=== PATIENT | male | born 1945 | race Caucasian/White ===

== ENCOUNTER → 2019-05-20 11:20 | Outpatient (BNVA) | payer MEDICARE, SELFPAY | PROVIDERS: Family Provider Family Medicine; PCP Family Medicine; Visit Provider Internal Medicine Rheumatology | DX: M05.79 Rheumatoid arthritis with rheumatoid factor of multiple sites without organ or systems involvement (principal); Z79.899 Other long term (current) drug therapy; Z20.1 Contact with and (suspected) exposure to tuberculosis; J44.9 Chronic obstructive pulmonary disease, unspecified; F17.210 Nicotine dependence, cigarettes, uncomplicated | CPT/HCPCS: 99213 ==

== ENCOUNTER → 2019-09-16 14:11 | Outpatient (BNVA) | payer MEDICARE, SELFPAY | PROVIDERS: Family Provider Family Medicine; PCP Family Medicine; Visit Provider Internal Medicine Rheumatology | DX: M05.79 Rheumatoid arthritis with rheumatoid factor of multiple sites without organ or systems involvement (principal); J44.9 Chronic obstructive pulmonary disease, unspecified; R91.1 Solitary pulmonary nodule; F17.210 Nicotine dependence, cigarettes, uncomplicated; Z79.899 Other long term (current) drug therapy; M06.9 Rheumatoid arthritis, unspecified; M19.071 Primary osteoarthritis, right ankle and foot; M85.871 Other specified disorders of bone density and structure, right ankle and foot; M19.072 Primary osteoarthritis, left ankle and foot; M47.812 Spondylosis without myelopathy or radiculopathy, cervical region | CPT/HCPCS: 72040; 73130; 73630; 99214 ==

== ENCOUNTER 2019-09-16 15:22 | Outpatient (CLI) | payer MEDICARE, SELFPAY ==
--- NOTE | 2019-09-16 15:31 | XRR_ITS ---
PROCEDURE INFORMATION: Exam: XR Left Foot Complete Exam date and time: 09/16/2019 3:34 PM Age: 74 years old Clinical indication: Condition or disease; Arthritis; Rheumatoid; Ankle and foot; Bilateral; Prior surgery; Surgery type: Left foot surgery, date of surgery not provided; Additional info: Rheumatoid arthritis TECHNIQUE: Imaging protocol: XR Left foot. Views: 3 or more views. COMPARISON: No relevant prior studies available. FINDINGS: Bones/joints: There is no fracture or dislocation. There are minimal marginal osteophytes at the 1st MTP joint. There are degenerative changes of the interphalangeal joint. Possible small erosion at the medial base of the 5th proximal phalanx. No other erosions are identified. No periosteal reaction. There is a minimal spur at the Achilles tendon insertion site on the calcaneus. Soft tissues: Normal. XR/XR foot LT min 3V* [id number] IMPRESSION: 1. Interphalangeal osteoarthritis. 2. Possible erosion at the medial base of the 5th proximal phalanx.
--- NOTE | 2019-09-16 15:31 | XRR_ITS ---
PROCEDURE INFORMATION: Exam: XR Cervical Spine, 2 or 3 Views Exam date and time: 09/16/2019 3:34 PM Age: 74 years old Clinical indication: Condition or disease; Other: Rheumatoid arthritis TECHNIQUE: Imaging protocol: XR of the cervical spine, 2 or 3 views. COMPARISON: No relevant prior studies available. FINDINGS: Vertebrae: There is no fracture. The odontoid is intact. Vertebral bodies maintain their height. There is multilevel spondylosis with ventral and small dorsal osteophytes. There is disc space narrowing at C5-C6 and C6-C7. There is no osseous erosion. There is a ventral bridging osteophyte at C5-C6. There is no other evidence of ankylosis. The atlantoaxial interval is normal. Soft tissues: Normal. XR/XR cervical spine 3V* [id number] IMPRESSION: 1. Spondylosis and disc space narrowing as described above. 2. No acute findings. No evidence of inflammatory arthritis.
--- NOTE | 2019-09-16 15:31 | XRR_ITS ---
PROCEDURE INFORMATION: Exam: XR Left Hand Exam date and time: 09/16/2019 3:34 PM Age: 74 years old Clinical indication: Condition or disease; Arthritis; Rheumatoid; Hand; Bilateral; Additional info: Rheumatoid arthritis TECHNIQUE: Imaging protocol: XR Left hand. Views: 3 or more views. COMPARISON: No relevant prior studies available. FINDINGS: Bones/joints: Cystic erosive change of the ulnar styloid. Degenerative arthritis of the scaphotrapezium trapezoid articulation. No acute fracture. Multiple areas of cystic erosive change of distal metacarpal bones which is most pronounced at the 2nd digit with remottling and partial cortical destruction. Areas of periarticular osteopenia. Numerous cystic erosive changes of the distal aspect of proximal phalanges. There are ulnar angulation deformities at the 2nd through 5th metatarsophalangeal joints. Mild sclerosis at the IP joint of the thumb. Soft tissues: Normal. XR/XR hand LT min 3V* [id number] IMPRESSION: Inflammatory arthritis involving multiple articulations as described which can be consistent with the clinical history of rheumatoid arthritis. Most extensive joint destructive process 2nd metacarpophalangeal joint.
--- NOTE | 2019-09-16 15:31 | XRR_ITS ---
PROCEDURE INFORMATION: Exam: XR Right Hand Exam date and time: 09/16/2019 3:34 PM Age: 74 years old Clinical indication: Condition or disease; Arthritis; Rheumatoid; Hand; Bilateral; Additional info: Rheumatoid arthritis TECHNIQUE: Imaging protocol: XR Right hand. Views: 3 or more views. COMPARISON: No relevant prior studies available. FINDINGS: Bones/joints: There is no fracture. There is lateral angulation at the 5th MCP joint. There are small lucencies within the ulnar styloid consistent with small erosions or cysts. There are degenerative cysts within multiple carpal bones. Small cysts or erosions at the PIP joint of the 2nd digit. Small erosions at the 1st 3rd and 5th MCP joints. Soft tissues: Normal. XR/XR hand RT min 3V* [id number] IMPRESSION: Lucencies at several joints consistent with small erosions or cysts.
--- NOTE | 2019-09-16 15:31 | XRR_ITS ---
PROCEDURE INFORMATION: Exam: XR Right Foot Complete Exam date and time: 09/16/2019 3:34 PM Age: 74 years old Clinical indication: Condition or disease; Arthritis; Rheumatoid; Ankle and foot; Right; Additional info: Rheumatoid arthritis TECHNIQUE: Imaging protocol: XR Right foot. Views: 3 or more views. COMPARISON: No relevant prior studies available. FINDINGS: Bones/joints: There is no fracture or dislocation. There are interphalangeal small marginal osteophytes. There is erosion of the head of the 5th metatarsal. No periosteal reaction. Soft tissues: Normal. XR/XR foot RT min 3V* [id number] IMPRESSION: 1. Interphalangeal osteoarthritis. 2. Erosion of the head of the 5th metatarsal.
== END 2019-09-16 15:23 | disposition home or self-care (01) ==
LOC: RADOUTREAD 15:29 → RADWPI 15:49
PROVIDERS: Family Provider Family Medicine; PCP Family Medicine; Visit Provider Internal Medicine Rheumatology
DX: M06.9 Rheumatoid arthritis, unspecified (principal); M19.071 Primary osteoarthritis, right ankle and foot; M85.871 Other specified disorders of bone density and structure, right ankle and foot; M19.072 Primary osteoarthritis, left ankle and foot; M47.812 Spondylosis without myelopathy or radiculopathy, cervical region
CPT/HCPCS: 72040; 73130; 73630

== ENCOUNTER 2019-10-15 12:25 | Outpatient (CLI) | payer MEDICARE, SELFPAY ==
--- NOTE | 2019-10-15 12:42 | CT_ITS ---
WS: [id number] CT LUNG CANCER SCREENING DLP: 87.53 mGy.cm DIvol: 2.42 mGy CLINICAL INFORMATION SCREENING VISIT: Baseline COMPARISON: None available. FINDINGS Diagnostic quality: Satisfactory Comments: None. Lung Nodules: RIGHT upper lobe solid nodule measuring 12 mm in diameter. Margins are slightly spicula jacqueline and irregular. Seen on image 101 of series 3. This nodule is within the central RIGHT upper lobe. More peripheral to this nodule is an additional spiculated nodule measuring 6 mm with pleural taggin g and tethering. There is tethering towards the more solid central nodule that was previously describ ed. Additional round nodule measuring 4 mm RIGHT upper lobe, image 112 of series 3. Rounded nodule measuring 3 mm subpleural RIGHT upper lobe, image 125 series 3. RIGHT middle lobe 4 mm nodule, image 140 series 3. May be partially calcified. Additionally partially calcified 8 mm nodule, image 160 series 3. Lungs: Hyperinflated lungs with changes of paraseptal emphysema. No endobronchial lesions. Heart: Mild enlargement of the heart. Moderate coronary artery calcifications. Other findings: Ectatic aorta with mild atherosclerosis. There are small, subcentimeter mediastinal a nd hilar lymph nodes. Hilar regions are poorly visualized due to lack of contrast. CT/CT lung screening [id number] IMPRESSION: LUNG-RADS: 4AS-Probably Suspicious with Significant Findings FOLLOW UP: PET/CT recommended 1. Chronic paraseptal emphysema. 2. Moderate atherosclerosis coronary arteries.
--- NOTE | 2019-10-15 13:06 | PFTS_ITS ---
Date of Study:10/15/19 Date of Dictation: MECHANICS: Forced vital capacity (FVC) is normal. Forced expiratory volume in one second (FEV1) is reduced. FEV1/FVC is reduced. FLOW VOLUME LOOP: Reduced with all lung volumes with scooping especially at lower lung volumes.. LUNG VOLUMES: Total lung capacity (TLC) is normal. Residual volume (RV) is normal. DIFFUSING CAPACITY FOR CARBON MONOXIDE: Normal. INTERPRETATION: The pulmonary function tests are consistent with moderate obstruction. There is significant postbronchodilator response. Lung volumes are normal. Gas exchange (DLCO) is normal. MTDD
== END 2019-10-15 12:26 | disposition home or self-care (01) ==
PROVIDERS: Family Provider Family Medicine; PCP Family Medicine; Visit Provider Internal Medicine Critical Care Medicine
DX: Z12.2 Encounter for screening for malignant neoplasm of respiratory organs (principal); J44.9 Chronic obstructive pulmonary disease, unspecified; F17.210 Nicotine dependence, cigarettes, uncomplicated; I25.10 Atherosclerotic heart disease of native coronary artery without angina pectoris
CPT/HCPCS: 94060; 94726; 94729; G0297; J7611

== ENCOUNTER 2020-03-06 14:14 | Outpatient (CLI) | payer MEDICARE, SELFPAY ==
--- NOTE | 2020-03-06 14:30 | CT_ITS ---
WS: [id number] Exam: CT chest wo con [id number] Date/Time of Exam: 03/06/2020 2:20 PM Reason For Exam: Lung Nodule DLP: 844.[address] scans at [facility] use at least one of these dose optimization techniques: automat ed exposure control; mA and/or kV adjustment per patient size (includes targeted exams where dose is matched to clinical indication); or iterative reconstruction. Comparison 10/15/2019. 1.2 cm spiculated nodule seen in the right upper lobe shows no change in size but still has suspiciou s appearance. There are additional subcentimeter nodules in the right upper lobe and right middle lob e which are stable in appearance since previous study. Stable subcentimeter nodule seen in the lingul a has been shown to contain some calcification. Chronic interstitial changes in the lingula. Emphysem atous changes. The lungs are fully expanded and clear. The trachea and mainstem bronchi are patent. M ild mediastinal lymphadenopathy unchanged. The thoracic aorta is normal in caliber. Coronary artery c alcifications. No pleural or pericardial effusion. No destructive bone lesions. CT/CT chest wo con [id number] IMPRESSION: 1. 1.2 cm spiculated nodule in the right upper lobe shows no change in size but has suspicious appearance for malignancy. 2. Additional subcentimeter nodules identified in the right upper and right mid dle lobes which are stable in appearance. 3. Emphysematous changes noted. Chronic interstitial changes in the lingula. 4. Stable appearing mild mediastinal lymphadenopathy.
== END 2020-03-06 14:15 | disposition home or self-care (01) ==
PROVIDERS: Family Provider Family Medicine; PCP Family Medicine; Visit Provider Internal Medicine Critical Care Medicine
DX: R91.1 Solitary pulmonary nodule (principal); R59.0 Localized enlarged lymph nodes
CPT/HCPCS: 71250

== ENCOUNTER → 2020-04-26 12:19 | Outpatient (BNVA) | payer MEDICARE, SELFPAY | PROVIDERS: Family Provider Family Medicine; PCP Family Medicine; Visit Provider Internal Medicine Rheumatology | DX: M05.79 Rheumatoid arthritis with rheumatoid factor of multiple sites without organ or systems involvement (principal); Z79.899 Other long term (current) drug therapy; R91.1 Solitary pulmonary nodule; J44.9 Chronic obstructive pulmonary disease, unspecified; F17.210 Nicotine dependence, cigarettes, uncomplicated | CPT/HCPCS: 99214 ==

== ENCOUNTER 2020-05-19 12:16 | Outpatient (CLI) | payer MEDICARE, SELFPAY ==
--- NOTE | 2020-05-19 12:57 | ECG_ITS ---
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 Measurements Intervals [place] Rate: 71 P: 62 [place]: 146 QRS: 58 QRSD: 113 T: 59 QT: 430 QTc: 469 Interpretive Statements SINUS RHYTHM WITH SINUS ARRHYTHMIA MODERATE INTRAVENTRICULAR CONDUCTION DELAY [110+ ms QRS DURATION] NONSPECIFIC ST ELEVATION [0.05+ mV ST ELEVATION] No previous ECG available for comparison Electronically Signed On 05-19-2020 22:25:05 [employer] by Lluvia Solis M.D. [id number]
[2020-05-19 13:16] LABS: Basophils # 0.1 10^3/uL (0.0-0.1); Basophils % 1.2 %; Eosinophils # 0.3 10^3/uL (0.0-0.8); Eosinophils % 4.2 %; Hemoglobin 13.4 g/dL (11.7-16.6); Lymphocytes # 2.3 10^3/uL (0.8-4.8); Lymphocytes % 30.3 %; Mean Corpuscular HGB Conc 33.5 g/dL (30.0-36.0); Mean Corpuscular Hemoglobin 30.9 pg (28.0-34.0); Mean Corpuscular Volume 92.4 fL (80-94); Mean Platelet Volume 9.6 fL (7.4-10.4); Monocytes # 0.6 10^3/uL (0.2-0.9); Monocytes % 7.7 %; Neutrophils # 4.33 10^3/uL (1.8-7.7); Neutrophils % 56.1 %; Nucleated Red Blood Cells % 0 %; Platelet Count 288 10^3/cmm (130-400); Red Blood Count 4.33 10^6/uL (4.1-5.3); Red Cell Distribution Width 12.7 % (12.1-15.1); White Blood Count 7.7 10^3/uL (4.0-10.0)
[2020-05-19 13:33] LABS: Anion Gap 14.1 (5-19); Blood Urea Nitrogen 17 mg/dL (8-23); Calcium 9.1 mg/dL (8.5-10.5); Carbon Dioxide 28 mmol/L (22-29); Chloride 99 mmol/L (98-107); Glucose 95 mg/dL (65-115); Osmolality Calculated 285 mOsm/kg (285-295); Potassium 4.1 mmol/L (3.5-5.1); Sodium 137 mmol/L (136-145)
== END 2020-05-19 12:17 | disposition home or self-care (01) ==
PROVIDERS: PCP Family Medicine; Visit Provider Specialist
DX: J32.8 Other chronic sinusitis (principal); J34.89 Other specified disorders of nose and nasal sinuses; Z01.810 Encounter for preprocedural cardiovascular examination; Z01.812 Encounter for preprocedural laboratory examination
CPT/HCPCS: 80048; 85025; 93005

== ENCOUNTER → 2020-08-01 13:30 | Outpatient (BNVA) | payer MEDICARE, SELFPAY | PROVIDERS: PCP Family Medicine; Visit Provider Internal Medicine Rheumatology | DX: M05.79 Rheumatoid arthritis with rheumatoid factor of multiple sites without organ or systems involvement (principal); M54.5 Low back pain; Z79.899 Other long term (current) drug therapy; F17.210 Nicotine dependence, cigarettes, uncomplicated; J44.9 Chronic obstructive pulmonary disease, unspecified; R91.8 Other nonspecific abnormal finding of lung field | CPT/HCPCS: 99214 ==

== ENCOUNTER → 2020-08-31 09:45 | Outpatient (BNVA) | payer MEDICARE, SELFPAY | PROVIDERS: PCP Family Medicine; Referring Provider Internal Medicine Rheumatology; Visit Provider Anesthesiology Pain Medicine | DX: M51.17 Intervertebral disc disorders with radiculopathy, lumbosacral region (principal); M48.062 Spinal stenosis, lumbar region with neurogenic claudication; M96.1 Postlaminectomy syndrome, not elsewhere classified; M47.816 Spondylosis without myelopathy or radiculopathy, lumbar region; M47.812 Spondylosis without myelopathy or radiculopathy, cervical region; T14.8XXA Other injury of unspecified body region, initial encounter; X58.XXXA Exposure to other specified factors, initial encounter; F17.210 Nicotine dependence, cigarettes, uncomplicated; Z79.891 Long term (current) use of opiate analgesic | CPT/HCPCS: 99205 ==

== ENCOUNTER → 2020-09-15 09:40 | Outpatient (BNVA) | payer MEDICARE, SELFPAY | PROVIDERS: PCP Family Medicine; Visit Provider Anesthesiology Pain Medicine | DX: M47.816 Spondylosis without myelopathy or radiculopathy, lumbar region (principal); M96.1 Postlaminectomy syndrome, not elsewhere classified; M47.812 Spondylosis without myelopathy or radiculopathy, cervical region; T14.8XXA Other injury of unspecified body region, initial encounter; X58.XXXA Exposure to other specified factors, initial encounter; F17.210 Nicotine dependence, cigarettes, uncomplicated; Z79.891 Long term (current) use of opiate analgesic | CPT/HCPCS: 99213 ==

== ENCOUNTER 2020-10-19 14:13 | Outpatient (CLI) | payer MEDICARE, SELFPAY ==
--- NOTE | 2020-10-19 14:30 | CT_ITS ---
WS: [id number] CT LUMBAR SPINE, noncontrast. HISTORY: M54.16 - Radiculopathy, lumbar region TECHNIQUE: Contiguous 2.5 mm axial imaging are performed. Sagittal and coronal reformats are submitte d and reviewed. All CT scans at [facility] use at least one of these dose optimization te chniques: automated exposure control; mA and/or kV adjustment per patient size (includes targeted exa ms where dose is matched to clinical indication); or iterative reconstruction. IV contrast: None DLP: 2297.25 mGycm COMPARISON: None available. Straightening of the normal lumbar lordosis. No fractures. Moderate to severe disc space narrowing. M ost significant at the L3-4 level. Irregularities noted within the superior endplate of the L3 and th e inferior endplate of L2. Large bridging osteophytes between L2 and L3. L1-2: Small central disc protrusion. Mild asymmetric disc bulging to the LEFT. Mild LEFT foraminal st enosis. L2-3: Diffuse osteophytic ridging asymmetric to the LEFT. Only mild foraminal narrowing. L3-4: Diffuse osteophytic ridging and annular disc bulging. Mild ligamentum flavum and facet arthriti s. There is mild central and bilateral subarticular and foraminal stenosis. Slightly greater stenosis on the RIGHT. L4-5: Large posterior laminectomy defect. Mild osteophytic ridging. Mild bilateral foraminal narrowin g. L4-5 facet joints are fused completely. L5-S1: Large posterior laminectomy defect. Very mild foraminal narrowing. Fusion between the L5 and S 1 facet joints bilaterally. Mild scattered plaque within the aorta. CT/CT lumbar spine wo con* [id number] IMPRESSION: 1. Mild central, bilateral subarticular and foraminal stenosis at L3-4, slight ly greater stenosis on the RIGHT. 2. Large laminectomy defects at L4-5 and L5-S1 and fusion between the facet cristino ints at L4-5 and L5-S1. 3. Mild LEFT foraminal stenosis at L1-2 and bilaterally at L2-3. 4. Marked osteopenia.
== END 2020-10-19 14:14 | disposition home or self-care (01) ==
LOC: RADWPI 14:16
PROVIDERS: PCP Family Medicine; Visit Provider Anesthesiology Pain Medicine
DX: M54.16 Radiculopathy, lumbar region (principal); M85.89 Other specified disorders of bone density and structure, multiple sites; M48.061 Spinal stenosis, lumbar region without neurogenic claudication; M96.1 Postlaminectomy syndrome, not elsewhere classified
CPT/HCPCS: 72131

== ENCOUNTER → 2020-11-14 13:05 | Outpatient (BNVA) | payer MEDICARE, SELFPAY | PROVIDERS: PCP Family Medicine; Visit Provider Internal Medicine Rheumatology | DX: M05.79 Rheumatoid arthritis with rheumatoid factor of multiple sites without organ or systems involvement (principal); K52.9 Noninfective gastroenteritis and colitis, unspecified; Z71.89 Other specified counseling; Z79.899 Other long term (current) drug therapy; R91.8 Other nonspecific abnormal finding of lung field; J44.9 Chronic obstructive pulmonary disease, unspecified; F17.210 Nicotine dependence, cigarettes, uncomplicated | CPT/HCPCS: 99214 ==

== ENCOUNTER → 2020-11-29 10:15 | Outpatient (BNVA) | payer MEDICARE, SELFPAY | PROVIDERS: PCP Family Medicine; Visit Provider Anesthesiology Pain Medicine | DX: M47.816 Spondylosis without myelopathy or radiculopathy, lumbar region (principal); M96.1 Postlaminectomy syndrome, not elsewhere classified; M47.812 Spondylosis without myelopathy or radiculopathy, cervical region; T14.8XXA Other injury of unspecified body region, initial encounter; X58.XXXA Exposure to other specified factors, initial encounter; F17.210 Nicotine dependence, cigarettes, uncomplicated; Z79.891 Long term (current) use of opiate analgesic | CPT/HCPCS: 99214 ==

== ENCOUNTER → 2020-12-11 13:29 | Outpatient (BNVA) | payer MEDICARE, SELFPAY | PROVIDERS: PCP Family Medicine; Visit Provider Anesthesiology Pain Medicine | DX: M47.816 Spondylosis without myelopathy or radiculopathy, lumbar region (principal); F17.210 Nicotine dependence, cigarettes, uncomplicated; Z79.891 Long term (current) use of opiate analgesic | CPT/HCPCS: 64493; 64494; 64495; J3490 ==

== ENCOUNTER → 2020-12-26 10:11 | Outpatient (BNVA) | payer MEDICARE, SELFPAY | PROVIDERS: PCP Family Medicine; Visit Provider Anesthesiology Pain Medicine | DX: M96.1 Postlaminectomy syndrome, not elsewhere classified (principal); M47.812 Spondylosis without myelopathy or radiculopathy, cervical region; M47.816 Spondylosis without myelopathy or radiculopathy, lumbar region; T14.8XXA Other injury of unspecified body region, initial encounter; F17.210 Nicotine dependence, cigarettes, uncomplicated; Z79.891 Long term (current) use of opiate analgesic | CPT/HCPCS: 99214 ==

== ENCOUNTER → 2021-01-09 14:36 | Outpatient (BNVA) | payer MEDICARE, SELFPAY | PROVIDERS: PCP Family Medicine; Visit Provider Anesthesiology Pain Medicine | DX: M47.816 Spondylosis without myelopathy or radiculopathy, lumbar region (principal); F17.210 Nicotine dependence, cigarettes, uncomplicated; Z79.891 Long term (current) use of opiate analgesic | CPT/HCPCS: 64635; 64636 ==

== ENCOUNTER → 2021-01-17 11:08 | Outpatient (BNVA) | payer MEDICARE, SELFPAY | PROVIDERS: PCP Family Medicine; Visit Provider Anesthesiology Pain Medicine | DX: M79.18 Myalgia, other site (principal); T14.8XXA Other injury of unspecified body region, initial encounter; M47.812 Spondylosis without myelopathy or radiculopathy, cervical region; M47.816 Spondylosis without myelopathy or radiculopathy, lumbar region; M96.1 Postlaminectomy syndrome, not elsewhere classified; X58.XXXA Exposure to other specified factors, initial encounter; F17.210 Nicotine dependence, cigarettes, uncomplicated; Z79.891 Long term (current) use of opiate analgesic | CPT/HCPCS: 20553; 99214 ==

== ENCOUNTER → 2021-02-26 09:07 | Outpatient (BNVA) | payer MEDICARE, SELFPAY | PROVIDERS: PCP Family Medicine; Visit Provider Anesthesiology Pain Medicine | DX: G89.29 Other chronic pain (principal); M96.1 Postlaminectomy syndrome, not elsewhere classified; M47.812 Spondylosis without myelopathy or radiculopathy, cervical region; M47.816 Spondylosis without myelopathy or radiculopathy, lumbar region; T14.8XXA Other injury of unspecified body region, initial encounter; F17.210 Nicotine dependence, cigarettes, uncomplicated; X58.XXXA Exposure to other specified factors, initial encounter; Z79.891 Long term (current) use of opiate analgesic | CPT/HCPCS: 99214 ==

== ENCOUNTER → 2021-03-05 14:05 | Outpatient (BNVA) | payer MEDICARE, SELFPAY | PROVIDERS: PCP Family Medicine; Visit Provider Anesthesiology Pain Medicine | DX: M47.816 Spondylosis without myelopathy or radiculopathy, lumbar region (principal); M54.16 Radiculopathy, lumbar region; F17.210 Nicotine dependence, cigarettes, uncomplicated | CPT/HCPCS: 64635; 64636; J1030 ==

== ENCOUNTER → 2021-03-22 10:34 | Outpatient (BNVA) | payer MEDICARE, SELFPAY | PROVIDERS: PCP Family Medicine; Visit Provider Anesthesiology Pain Medicine | DX: M47.816 Spondylosis without myelopathy or radiculopathy, lumbar region (principal); M96.1 Postlaminectomy syndrome, not elsewhere classified; M47.812 Spondylosis without myelopathy or radiculopathy, cervical region; M79.604 Pain in right leg; M79.605 Pain in left leg; T14.8XXA Other injury of unspecified body region, initial encounter; Z79.891 Long term (current) use of opiate analgesic | CPT/HCPCS: 99214 ==

== ENCOUNTER → 2021-04-12 10:05 | Outpatient (BNVA) | payer MEDICARE, SELFPAY | PROVIDERS: PCP Family Medicine; Visit Provider Anesthesiology Pain Medicine | DX: M96.1 Postlaminectomy syndrome, not elsewhere classified (principal); M47.812 Spondylosis without myelopathy or radiculopathy, cervical region; M47.816 Spondylosis without myelopathy or radiculopathy, lumbar region; R10.30 Lower abdominal pain, unspecified; M79.604 Pain in right leg; M79.605 Pain in left leg; T14.8XXA Other injury of unspecified body region, initial encounter; Y83.9 Surgical procedure, unspecified as the cause of abnormal reaction of the patient, or of later complication, without mention of misadventure at the time of the procedure; Z79.891 Long term (current) use of opiate analgesic | CPT/HCPCS: 99214 ==

== ENCOUNTER → 2021-04-23 14:10 | Outpatient (BNVA) | payer MEDICARE, SELFPAY | PROVIDERS: PCP Family Medicine; Visit Provider Anesthesiology Pain Medicine | DX: M54.16 Radiculopathy, lumbar region (principal); Z79.891 Long term (current) use of opiate analgesic | CPT/HCPCS: 64483; 64484; J1100; J3490 ==

== ENCOUNTER → 2021-05-07 08:30 | Outpatient (BNVA) | payer MEDICARE, SELFPAY | PROVIDERS: PCP Family Medicine; Visit Provider Anesthesiology Pain Medicine | DX: G89.29 Other chronic pain (principal); M51.17 Intervertebral disc disorders with radiculopathy, lumbosacral region; M96.1 Postlaminectomy syndrome, not elsewhere classified; M47.812 Spondylosis without myelopathy or radiculopathy, cervical region; T14.8XXA Other injury of unspecified body region, initial encounter; M47.816 Spondylosis without myelopathy or radiculopathy, lumbar region; X58.XXXA Exposure to other specified factors, initial encounter | CPT/HCPCS: 99214 ==

== ENCOUNTER 2021-05-17 06:00 | Outpatient (RCR) | payer MEDICARE, SELFPAY | END 2021-05-21 23:59 | disposition home or self-care (01) | LOC: MPT 06:00 | PROVIDERS: PCP Family Medicine; Referring Provider Anesthesiology Pain Medicine; Visit Provider Anesthesiology Pain Medicine | DX: M54.50 Low back pain, unspecified (principal); G89.29 Other chronic pain | CPT/HCPCS: 97110; 97162; G0283 ==

== ENCOUNTER 2021-05-22 06:00 | Outpatient (RCR) | payer MEDICARE, SELFPAY | END 2021-06-18 23:59 | disposition home or self-care (01) | LOC: MPT 06:00 | PROVIDERS: PCP Family Medicine; Referring Provider Anesthesiology Pain Medicine; Visit Provider Anesthesiology Pain Medicine | DX: G89.29 Other chronic pain (principal) | CPT/HCPCS: 97110; G0283 ==

== ENCOUNTER → 2021-05-30 09:22 | Outpatient (BNVA) | payer MEDICARE, SELFPAY | PROVIDERS: PCP Family Medicine; Visit Provider Anesthesiology Pain Medicine | DX: M47.812 Spondylosis without myelopathy or radiculopathy, cervical region (principal); M47.816 Spondylosis without myelopathy or radiculopathy, lumbar region; M96.1 Postlaminectomy syndrome, not elsewhere classified; T14.8XXA Other injury of unspecified body region, initial encounter; M79.604 Pain in right leg; M79.605 Pain in left leg; F17.210 Nicotine dependence, cigarettes, uncomplicated; Z79.891 Long term (current) use of opiate analgesic | CPT/HCPCS: 99214 ==

== ENCOUNTER 2021-06-19 06:00 | Outpatient (RCR) | payer MEDICARE, SELFPAY | END 2021-07-19 23:59 | disposition home or self-care (01) | LOC: MPT 06:00 | PROVIDERS: PCP Family Medicine; Referring Provider Anesthesiology Pain Medicine; Visit Provider Anesthesiology Pain Medicine | DX: M54.50 Low back pain, unspecified (principal); G89.29 Other chronic pain | CPT/HCPCS: 97110; 97140; G0283 ==

== ENCOUNTER → 2021-07-25 08:52 | Outpatient (BNVA) | payer MEDICARE, SELFPAY | PROVIDERS: PCP Family Medicine; Visit Provider Anesthesiology Pain Medicine | DX: G89.29 Other chronic pain (principal); M51.17 Intervertebral disc disorders with radiculopathy, lumbosacral region; M47.816 Spondylosis without myelopathy or radiculopathy, lumbar region; M96.1 Postlaminectomy syndrome, not elsewhere classified; M47.812 Spondylosis without myelopathy or radiculopathy, cervical region; T14.8XXA Other injury of unspecified body region, initial encounter; F17.210 Nicotine dependence, cigarettes, uncomplicated; Z79.891 Long term (current) use of opiate analgesic; X58.XXXA Exposure to other specified factors, initial encounter | CPT/HCPCS: 72110; 99214 ==

== ENCOUNTER 2021-08-20 10:12 | Outpatient (CLI) | payer MEDICARE, SELFPAY ==
[2021-08-20 11:14] LABS: Basophils # 0.1 10^3/uL (0.0-0.1); Basophils % 1.3 %; Eosinophils # 0.9 10^3/uL (0.0-0.8); Eosinophils % 11.3 %; Hematocrit 38.1 % (42.0-52.0); Hemoglobin 12.4 g/dL (11.7-16.6); Lymphocytes # 2.1 10^3/uL (0.8-4.8); Lymphocytes % 25.6 %; Mean Corpuscular HGB Conc 32.5 g/dL (30.0-36.0); Mean Corpuscular Volume 95.3 fl (80-94); Mean Platelet Volume 10.1 fL (7.4-10.4); Monocytes # 0.9 10^3/uL (0.2-0.9); Monocytes % 10.4 %; Neutrophils # 4.19 10^3/uL (1.8-7.7); Neutrophils % 50.9 %; Nucleated Red Blood Cells % 0 %; Platelet Count 264 10^3/cmm (130-400); Red Cell Distribution Width 13.7 % (12.1-15.1); White Blood Count 8.2 10^3/uL (4.0-10.0)
[2021-08-20 11:34] LABS: Alanine Aminotransferase 9 U/L (0-41); Albumin Level 3.5 g/dL (3.5-5.2); Alkaline Phosphatase 65 IU/L (40-130); Aspartate Amino Transferase 18 U/L (0-40); C Reactive Protein 4.6 mg/L (0.0-4.9); Total Bilirubin 0.2 mg/dL (0.15-1.2); Total Protein 6.5 g/dL (6.6-8.7)
== END 2021-08-20 10:13 | disposition home or self-care (01) ==
PROVIDERS: PCP Family Medicine; Visit Provider Internal Medicine Rheumatology
DX: N18.30 Chronic kidney disease, stage 3 unspecified (principal); J44.9 Chronic obstructive pulmonary disease, unspecified; R91.8 Other nonspecific abnormal finding of lung field; R19.7 Diarrhea, unspecified; Z71.89 Other specified counseling; M05.79 Rheumatoid arthritis with rheumatoid factor of multiple sites without organ or systems involvement; Z79.899 Other long term (current) drug therapy
CPT/HCPCS: 80076; 82565; 85025; 86140; 99214

== ENCOUNTER → 2021-08-21 08:27 | Outpatient (BNVA) | payer MEDICARE, SELFPAY | PROVIDERS: PCP Family Medicine; Visit Provider Anesthesiology Pain Medicine | DX: M47.816 Spondylosis without myelopathy or radiculopathy, lumbar region (principal); M96.1 Postlaminectomy syndrome, not elsewhere classified; M47.812 Spondylosis without myelopathy or radiculopathy, cervical region; M79.604 Pain in right leg; M79.605 Pain in left leg; T14.8XXA Other injury of unspecified body region, initial encounter; X58.XXXA Exposure to other specified factors, initial encounter; F17.210 Nicotine dependence, cigarettes, uncomplicated; Z79.891 Long term (current) use of opiate analgesic | CPT/HCPCS: 99214 ==

== ENCOUNTER → 2021-08-27 09:39 | Outpatient (BNVA) | payer MEDICARE, SELFPAY | PROVIDERS: PCP Family Medicine; Visit Provider Anesthesiology Pain Medicine | DX: M47.816 Spondylosis without myelopathy or radiculopathy, lumbar region (principal); M47.812 Spondylosis without myelopathy or radiculopathy, cervical region; T14.8XXA Other injury of unspecified body region, initial encounter; M96.1 Postlaminectomy syndrome, not elsewhere classified; X58.XXXA Exposure to other specified factors, initial encounter; M79.604 Pain in right leg; M79.605 Pain in left leg; F17.210 Nicotine dependence, cigarettes, uncomplicated; Z79.891 Long term (current) use of opiate analgesic | CPT/HCPCS: 99214 ==

== ENCOUNTER → 2021-09-24 13:07 | Outpatient (BNVA) | payer MEDICARE, SELFPAY | PROVIDERS: PCP Family Medicine; Visit Provider Anesthesiology Pain Medicine | DX: F17.210 Nicotine dependence, cigarettes, uncomplicated (principal); Z79.891 Long term (current) use of opiate analgesic; M54.16 Radiculopathy, lumbar region | CPT/HCPCS: 62323; J1030; J3490 ==

== ENCOUNTER → 2021-10-08 10:31 | Outpatient (BNVA) | payer MEDICARE, SELFPAY | PROVIDERS: PCP Family Medicine; Visit Provider Anesthesiology Pain Medicine | DX: M47.816 Spondylosis without myelopathy or radiculopathy, lumbar region (principal); M47.812 Spondylosis without myelopathy or radiculopathy, cervical region; M96.1 Postlaminectomy syndrome, not elsewhere classified; T14.8XXA Other injury of unspecified body region, initial encounter; F17.210 Nicotine dependence, cigarettes, uncomplicated; Z79.891 Long term (current) use of opiate analgesic | CPT/HCPCS: 99214 ==

== ENCOUNTER → 2021-12-17 12:03 | Outpatient (BNVA) | payer MEDICARE, SELFPAY | PROVIDERS: PCP Family Medicine; Visit Provider Internal Medicine Rheumatology | DX: M47.812 Spondylosis without myelopathy or radiculopathy, cervical region (principal); M47.816 Spondylosis without myelopathy or radiculopathy, lumbar region; M96.1 Postlaminectomy syndrome, not elsewhere classified; M79.604 Pain in right leg; M79.605 Pain in left leg; T14.8XXA Other injury of unspecified body region, initial encounter; F17.210 Nicotine dependence, cigarettes, uncomplicated; X58.XXXA Exposure to other specified factors, initial encounter; M05.79 Rheumatoid arthritis with rheumatoid factor of multiple sites without organ or systems involvement; J44.9 Chronic obstructive pulmonary disease, unspecified; R91.8 Other nonspecific abnormal finding of lung field; K52.9 Noninfective gastroenteritis and colitis, unspecified; Z87.11 Personal history of peptic ulcer disease | CPT/HCPCS: 36415; 80076; 82565; 85025; 86140; 99213; 99214 ==

== ENCOUNTER → 2022-01-22 11:11 | Outpatient (BNVA) | payer MEDICARE, SELFPAY | PROVIDERS: PCP Family Medicine; Visit Provider Orthopaedic Surgery | DX: M54.2 Cervicalgia (principal); M48.062 Spinal stenosis, lumbar region with neurogenic claudication | CPT/HCPCS: 72110; 99203; 99204 ==

== ENCOUNTER → 2022-03-20 15:04 | Outpatient (BNVA) | payer MEDICARE, SELFPAY | PROVIDERS: PCP Family Medicine; Visit Provider Anesthesiology Pain Medicine | DX: M51.17 Intervertebral disc disorders with radiculopathy, lumbosacral region (principal); M48.062 Spinal stenosis, lumbar region with neurogenic claudication; M47.816 Spondylosis without myelopathy or radiculopathy, lumbar region; M47.812 Spondylosis without myelopathy or radiculopathy, cervical region; M96.1 Postlaminectomy syndrome, not elsewhere classified; T14.8XXA Other injury of unspecified body region, initial encounter; F17.210 Nicotine dependence, cigarettes, uncomplicated | CPT/HCPCS: 99214 ==

== ENCOUNTER 2022-04-01 09:40 | Outpatient (CLI) | payer MEDICARE, SELFPAY ==
--- NOTE | 2022-04-01 15:15 | MR_ITS ---
WS: [id number] MRI LUMBAR SPINE NONCONTRAST HISTORY: Lumbar and LEFT leg pain. COMPARISON: Lumbar spine radiograph 01/22/2022 TECHNIQUE: Sagittal and axial multisequence imaging is submitted. Marked straightening of the normal lumbar lordosis. No fractures or marrow edema. Heterogeneity withi n the vertebral bodies related to osteopenia. Disc spaces are diffusely narrowed. Severe narrowing an d degenerative changes at the L5-S1 disc. Conus terminates normally at L1-2 disc level. L1-L2: Mild annular disc bulging with osteophytic ridging and a central disc protrusion. Mild bilater al foraminal stenosis and subarticular recess stenosis. L2-L3: Mild annular disc bulging asymmetric to the LEFT and osteophytic ridging. Ligamentum flavum an d facet arthritis. Mild foraminal stenosis and mild bilateral subarticular recess stenosis, LEFT grea ter than RIGHT. Most significant encroachment upon the traversing LEFT L3 nerve root. L3-L4: Diffuse annular disc bulging and osteophytic ridging. Mild ligamentum flavum and facet arthrit is. Mild central with LEFT subarticular recess and foraminal stenosis. More significant encroachment involving the RIGHT subarticular recess and foramen. L4-L5: Mild osteophytic ridging. Large posterior laminectomy defect with bone graft fusion. Moderate bilateral foraminal stenosis. L5-S1: Posterior laminectomy defect. Mild bilateral foraminal stenosis. Paravertebral soft tissues are normal. MR/MR lumbar spine wo con* [id number] IMPRESSION: 1. Advanced degenerative disc disease and spondylosis. 2. Prior large posterior laminectomy defects at L4 and L5. 3. Moderate RIGHT subarticular foraminal stenosis at L3-4 due to disc and oste ophytosis. 4. Mild central and LEFT subarticular/foraminal stenosis at L3-4. 5. Mild bilateral foraminal subarticular recess stenosis at L1-2 and L2-3. Mos t significant encroachment upon the traversing LEFT L3 nerve root. 6. Moderate bilateral foraminal stenosis at L4-5 predominantly due to facet di sease.
== END 2022-04-01 09:41 | disposition home or self-care (01) ==
PROVIDERS: PCP Family Medicine; Visit Provider Orthopaedic Surgery
DX: M48.062 Spinal stenosis, lumbar region with neurogenic claudication (principal); M47.896 Other spondylosis, lumbar region
CPT/HCPCS: 72148

== ENCOUNTER → 2022-05-16 15:12 | Outpatient (BNVA) | payer MEDICARE, SELFPAY | PROVIDERS: PCP Family Medicine; Visit Provider Orthopaedic Surgery | DX: M48.062 Spinal stenosis, lumbar region with neurogenic claudication (principal) | CPT/HCPCS: 99214 ==

== ENCOUNTER → 2022-05-23 15:35 | Outpatient (BNVA) | payer MEDICARE, SELFPAY | PROVIDERS: PCP Family Medicine; Visit Provider Internal Medicine Pulmonary Disease | DX: R91.1 Solitary pulmonary nodule (principal); J44.9 Chronic obstructive pulmonary disease, unspecified; F17.210 Nicotine dependence, cigarettes, uncomplicated | CPT/HCPCS: 99214 ==

== ENCOUNTER 2022-05-31 13:21 | Day surgery (SDC) | payer MEDICARE, SELFPAY ==
--- NOTE | 2022-05-29 10:08 | P.ANESASSM_ITS ---
Pre-Anesthetic Assessment Height/Weight: Height 1.75 m Weight 78.018 kg Operation Date: 05/31/22 13:05 Proposed Procedures p Lumbar Spine Decompression: Left sided L3/4 31946, M48.062(Left) - Sarabjit Cox DO Familial anesthetic complications: got overdosed once during a back surgery and went into coma for 3 days (apparently the anesthesiologist was abusing drugs and they were notified of this 8 years after the event) Social Tobacco and No alcohol Exam alert, oriented x 3, clear to auscultation bilaterally and regular rate & rhythm Airway Mallampati: Class II Dentition: false Pulmonary Chronic Obstructive Pulmonary Disease CV/HEM Hypertension Chronic Renal Insufficiency Hepatic None reported GI None reported Metabolic None reported Musc/skel Lower Back Pain and Rheumatoid Arthritis Anesthetic Plan ASA status: 3 Anesthesia: General Risk of > 500 ml blood loss (7ml/kg in children): No Other Pertinent Information Alpha Gal allergy Medications/Allergies Home Medications Medication Instructions Recorded Confirmed Last Taken Type aspirin 81 mg tablet,delayed 81 mg PO QDAY 05/19/19 05/29/22 05/29/22 History release (Adult Aspirin Regimen) pyridoxine (vitamin B6) 100 mg 100 mg PO QDAY 05/19/19 05/29/22 05/29/22 History tablet azelastine 137 mcg (0.1 %) nasal 1 spray intranasal BID 09/30/19 05/29/22 05/29/22 History spray aerosol diclofenac sodium 1 % topical gel 2 g topical QID #200 grams 04/26/20 05/29/22 05/22/22 Rx lisinopril 20 1 tab PO DAILY 04/26/20 05/29/22 05/29/22 History mg-hydrochlorothiazide 25 mg tablet hydrocodone 7.5 mg-acetaminophen 1 tab PO Q6H PRN Pain 08/31/20 05/29/22 Unknown History 325 mg tablet albuterol sulfate 90 mcg/actuation 1 puff inhalation QID 11/14/20 05/29/22 05/29/22 History aerosol inhaler (ProAir HFA) levocetirizine 5 mg tablet 5 mg PO DAILY 11/14/20 05/29/22 05/29/22 History mecobalamin (vitamin B12) 1,000 1,000 mcg PO DAILY 08/20/21 05/29/22 05/29/22 History mcg chewable tablet citalopram 20 mg tablet (Celexa) 40 mg PO .AT BEDTIME 12/17/21 05/29/22 05/29/22 History pantoprazole 40 mg tablet,delayed 40 mg PO DAILY 12/17/21 05/29/22 05/29/22 History release prednisone 5 mg tablet 5 mg PO DAILY #90 tabs 12/17/21 05/29/22 05/28/22 Rx tramadol 50 mg tablet 50 mg PO Q6H PRN Pain 12/17/21 05/29/22 05/28/22 History leflunomide 20 mg tablet See Rx Instructions .Route 02/18/22 05/29/22 05/29/22 Rx .COMPLEX #90 tabs gabapentin 100 mg capsule 100 mg PO BID pain 90 days #180 03/20/22 05/29/22 05/29/22 Rx caps folic acid 1 mg tablet See Rx Instructions .Route 04/01/22 05/29/22 05/29/22 Rx .COMPLEX #270 tabs prednisone 10 mg tablet See Rx Instructions PO DAILY 04/23/22 05/29/22 05/29/22 Rx rheumatiod arthritis #30 tabs fluticasone fur. 100 mcg-umeclid 1 inh inhalation DAILY #60 ea 05/23/22 05/29/22 05/29/22 Rx 62.5 mcg-vilant 25 mcg inhalat.powder (Trelegy Ellipta) terazosin 1 mg capsule 1 mg PO DAILY 05/23/22 05/29/22 05/29/22 History Allergies Allergy/AdvReac Type Severity Reaction Status Date / Time adalimumab [From Humira] Allergy Intermediate rash Verified 05/29/22 09:33 caffeine Allergy Unknown rash Verified 05/29/22 09:33 sulfasalazine Allergy Unknown rash Verified 05/29/22 09:33 [facility] Anesthesia Medical History Chronic diarrhea CKD (chronic kidney disease) stage 3, GFR 30-59 ml/min High risk medication use Immunization counseling Low back pain Lung nodule Other watermelon harvesting supervisor (current) drug therapy Surgical History H/O hernia repair History of back surgery 1988 Family History Other CAD (coronary artery disease) Cancer Hypertension Rheumatoid arthritis Stroke Denies family history of Diabetes Lupus Chronic kidney disease (CKD) Social History Smoking and tobacco status: current every day smoker cigarettes Packs smoked per day: 0.5 Years cigarettes smoked: 60 [ Other cigarette details: 2PPD x 40 Years] Quit status (tobacco): considering quitting Smoking risk assessment/counseling performed?: Yes Alcohol intake: never Lives independently: Yes Household members: spouse Marital status: Current occupational status: retired and disabled History of recent travel: No Current gender identity: Male Data Anesthesia Cardiac Studies: No Data to Display
--- NOTE | 2022-05-29 10:10 | ECG_ITS ---
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 Measurements Intervals [place] Rate: 94 P: 77 [place]: 141 QRS: 69 QRSD: 98 T: 74 QT: 380 QTc: 476 Interpretive Statements SINUS RHYTHM Compared to ECG 05/19/2020 12:34:53 Sinus arrhythmia no longer present Intraventricular conduction delay no longer present ST (T wave) deviation no longer present Electronically Signed On 05-30-2022 0:15:29 [employer] by Gerson Andrew M.D. [id number]
[2022-05-29 11:20] LABS: Alanine Aminotransferase 15 U/L (0-41); Albumin Level 3.5 g/dL (3.5-5.2); Alkaline Phosphatase 78 U/L (40-130); Anion Gap 14.1 (5-19); Aspartate Amino Transferase 21 U/L (0-40); Blood Urea Nitrogen 19 mg/dL (8-23); Calcium 8.8 mg/dL (8.5-10.5); Carbon Dioxide 24 mmol/L (22-29); Chloride 103 mmol/L (98-107); Globulin 2.7 g/dL (1.3-4.6); Glucose 89 mg/dL (65-115); Osmolality Calculated 286 mOsm/kg (285-295); Potassium 4.1 mmol/L (3.5-5.1); Sodium 137 mmol/L (136-145); Total Bilirubin 0.3 mg/dL (0.15-1.2); Total Protein 6.2 g/dL (6.6-8.7)
[2022-05-31] VITALS (7 sets, daily range): BP systolic 162–178; BP diastolic 90–112; PULSE 85–101; RESP 10–20; TEMP 36.3–37.2; O2SAT 91–98
--- NOTE | 2022-05-31 13:41 | P.ANESUD_ITS ---
Pre-Anesthetic Update Pre-Anesthetic Assessment: Date of Surgery/Procedure: 05/31/22 Preop Nikki gnosis: Lumbar stenosis w/neurogenic claudication Proposed Procedure: Operation Date: 05/31/22 15:35 Proposed Procedures p Lumbar Spine Decompression: Left sided L3/4 60137, M48.062(Left) - Sarabjit Cox, DO Any changes to Pre-Anesthetic Assessment?: No Last Intake: Breakfast at 0600 Exam: Pre-Anes Outpt Exam: alert, oriented x 3, clear to auscultation bilaterally and regular rate & rhythm Cardiac Studies: No Data to Display
--- NOTE | 2022-05-31 13:50 | W.PM.OPSUD ---
Surgery/Procedure H&P Update DATE OF PROCEDURE: May 31, 2022 DATE H&P PERFORMED: 05/16/22 H&P UPDATE INFORMATION: I have reviewed H&P completed within last 30 days, I have examined patient prior to procedure and No changes to prior documentation PREOP DIAGNOSIS: Lumbar stenosis w/neurogenic claudication PLANNED PROCEDURE: Operation Date: 05/31/22 15:35 Proposed Procedures p Lumbar Spine Decompression: Left sided L3/4 54659, M48.062(Left) - Sarabjit Cox DO
[2022-05-31] MEDS: sodium chloride 0.9% 1,000 ML 30 ML IV (13:52)
[2022-05-31] MEDS: ceFAZolin 2,000 MG in sodium chloride 0.9% (plus) 50 ML 100 MG IV (14:06)
[2022-05-31] MEDS: lidocaine-epi 2% 20 mL INJ INJECTION (14:38)
--- NOTE | 2022-05-31 15:32 | P.OP_ITS ---
Operative Report Date of procedure: May 31, 2022 Pre-op diagnosis: Preop Diagnosis Lumbar stenosis w/neurogenic claudication Post-op diagnosis: same Procedure done: 1. L3/4 laminectomy with partial facetectomy Surgeon: Sarabjit Cox Software Support Technician: Guido Garcia Software Support Technician: The bankruptcy legal assistant, Guido Garcia, SHAINA was needed for his expertise under the microscope. He was important and necessary throughout the procedure to complete in a safe and timely manner. He assisted with patient positioning prepping and draping tissue retraction suctioning of the operative field protection of the dural sac and tissue closure Estimated blood loss (mL): 20 Procedure: A skin incision is made over the L3/4 level. This is confirmed under c-arm guidance. A series of dilators are passed and the tubular retractor is docked on the L3 lamina. A bovie is used to clear the soft tissue off the lamina and the L 3/4 facet joint. A high speed desi is then used to perform the laminectomy and take down the medial aspect of the L 3/4 facet joint. A kerrison rongeure was then used to take down the remaining lamina and smooth the edge of the laminectomy up to the point where the ligamentum flavum attaches. Attention was then brought to the medial aspect of the facet joint. The remaining medial aspect of the superior and inferior aspect of the facet joint were taken down with the kerrison from the pedicle of L3 to L 4. The facet joint had significant hypertrophy. Attention was then brought to the Ligamentum Flavum. The ligament was taken down from the lamina of L3 to L4 and out medially to the remaining facet joint. The ligament was thick. The dura was then exposed. The dura was in good repair. The L3 nerve was then traced with a curette out the L3/4 foramen and found to be adequately decompressed. The L4 nerve was traced with a curette around the L4 pedicle. The lateral recess was opened with a kerrison helping to further decompress the L4 nerve. Wound is then irrigated copiously with saline and surgiflo is used to stop any bleeding. The tubular retractor is removed and the wound is closed with vicryl and monocryl suture. Glue is then used to protect the wound. A sterile dressing is then placed. Patient was then placed in the supine position and transferred to the PACU in stable condition.
--- NOTE | 2022-05-31 15:40 | ANE.PACU2 ---
Inpatient post-anesthesia follow up: Airway intact: Yes Vital signs: Temperature 98.9 F Pulse Rate 94 Respiratory Rate 18 Blood Pressure 162/97 Pulse Oximetry 94 Oxygen Delivery Me thod Room Air Oxygen Flow Rate Fraction of Inspir ed Oxygen Hydration adequate: Yes Nausea and vomiting: No Pain level: 1 Mental status: Baseline
--- NOTE | 2022-05-31 15:46 | XR_ITS ---
WS: [id number] C-ARM RADIOGRAPHS LUMBAR SPINE; 2 IMAGES HISTORY: OR PICS COMPARISON: None available. No anatomic imaging submitted. XR/XR lumbar spine 1V [id number] IMPRESSION: No anatomic imaging submitted. Fluoroscopy provided for Dr. Cox.
[2022-05-31] MEDS: HYDROcodone-acetaminophen 5-325 mg Tablet 2 TAB PO (15:51)
== END 2022-05-31 16:22 | disposition home or self-care (01) ==
PROVIDERS: PCP Family Medicine; Visit Provider Orthopaedic Surgery
PROC: (CPT 63005; principal; 2022-05-31 15:05)
DX: M48.062 Spinal stenosis, lumbar region with neurogenic claudication (principal); J44.9 Chronic obstructive pulmonary disease, unspecified; M06.9 Rheumatoid arthritis, unspecified; Z79.82 Long term (current) use of aspirin; I12.9 Hypertensive chronic kidney disease with stage 1 through stage 4 chronic kidney disease, or unspecified chronic kidney disease; N18.30 Chronic kidney disease, stage 3 unspecified; Z79.899 Other long term (current) drug therapy; F17.210 Nicotine dependence, cigarettes, uncomplicated
CPT/HCPCS: 63047; 72020; 76000; 80053; 93005; J0690; J1100; J2405; J2704; J2710; J3010; J3490; J7030

== ENCOUNTER 2022-06-12 09:32 | Outpatient (CLI) | payer MEDICARE, SELFPAY ==
--- NOTE | 2022-06-12 10:00 | CT_ITS ---
WS: [id number] CT CHEST WITHOUT INTRAVENOUS CONTRAST HISTORY: pulmonary nodule TECHNIQUE: Contiguous 5 mm axial imaging performed on the thorax. Coronal and sagittal reformats are submitted. All CT scans at [facility] use at least one of these dose optimization techniques: automated exposure control; mA and/or kV adjustment per patient size (includes targeted exams where dose is matched to clinical indication); or iterative reconstruction. CONTRAST: None DLP: 347.19 mGy.cm COMPARISON: 11/16/2020, 03/06/2020 and 10/15/2019 Lungs and central airway: Chronic emphysema. Lungs are hyperinflated. There are multiple bilateral pu lmonary nodules. The largest nodule is reidentified RIGHT upper lobe measuring 11 x 14 mm. Postobstru ctive atelectasis distal to the nodule. No increase in size. There are additional scattered small aviva ronodules and additional nodules. Nodule toward the lingula measures 5 mm and is slowly increasing in size since 11/16/2020. Small benign-appearing nodules are new along the RIGHT major fissure. Pleura: Normal. No pleural effusion. Heart and pericardium: Normal size heart. No effusion. Mediastinum and denise: No adenopathy is identified. There are small benign-appearing lymph nodes. Vessels: Atherosclerosis aorta. Normal size pulmonary artery. Moderate to severe coronary artery athe rosclerosis. Chest wall and lower neck: No soft tissue masses. Upper abdomen: Small hiatal hernia. Osseous structures: Osteopenia. CT/CT chest wo con [id number] IMPRESSION: 1. No significant increase in size of the 11 x 14 mm RIGHT upper lobe nodule. 2. Slight increase in size of the 5 mm lingular nodule. Recommend continued cl ose follow-up. 3. Additional scattered pulmonary nodules are stable. 4. No adenopathy. 5. Advanced coronary artery atherosclerosis.
== END 2022-06-12 09:33 | disposition home or self-care (01) ==
LOC: RAD 09:40
PROVIDERS: PCP Family Medicine; Visit Provider Internal Medicine Pulmonary Disease
DX: R91.1 Solitary pulmonary nodule (principal); J44.9 Chronic obstructive pulmonary disease, unspecified; F17.200 Nicotine dependence, unspecified, uncomplicated
CPT/HCPCS: 71250

== ENCOUNTER → 2022-06-19 09:42 | Outpatient (BNVA) | payer MEDICARE, SELFPAY | PROVIDERS: PCP Family Medicine; Visit Provider Internal Medicine Rheumatology | DX: M05.79 Rheumatoid arthritis with rheumatoid factor of multiple sites without organ or systems involvement (principal); Z79.899 Other long term (current) drug therapy; Z71.89 Other specified counseling; N18.30 Chronic kidney disease, stage 3 unspecified; J44.9 Chronic obstructive pulmonary disease, unspecified; F17.210 Nicotine dependence, cigarettes, uncomplicated | CPT/HCPCS: 36415; 80076; 82565; 85025; 86140; 99214 ==

== ENCOUNTER → 2022-07-05 09:40 | Outpatient (BNVA) | payer MEDICARE, SELFPAY | PROVIDERS: PCP Family Medicine; Visit Provider Internal Medicine Pulmonary Disease | DX: R91.1 Solitary pulmonary nodule (principal); J44.9 Chronic obstructive pulmonary disease, unspecified; M05.79 Rheumatoid arthritis with rheumatoid factor of multiple sites without organ or systems involvement; F17.210 Nicotine dependence, cigarettes, uncomplicated; N18.9 Chronic kidney disease, unspecified; Z79.52 Long term (current) use of systemic steroids | CPT/HCPCS: 99214 ==

== ENCOUNTER → 2022-07-16 09:11 | Outpatient (BNVA) | payer MEDICARE, SELFPAY | PROVIDERS: PCP Family Medicine; Visit Provider Physician Assistant | DX: Z48.89 Encounter for other specified surgical aftercare (principal) | CPT/HCPCS: 99024 ==

== ENCOUNTER → 2022-09-05 09:13 | Outpatient (BNVA) | payer MEDICARE, SELFPAY | PROVIDERS: PCP Family Medicine; Visit Provider Physician Assistant | DX: Z98.890 Other specified postprocedural states (principal) | CPT/HCPCS: 99024 ==

== ENCOUNTER → 2022-09-24 08:48 | Outpatient (BNVA) | payer MEDICARE, SELFPAY | PROVIDERS: PCP Family Medicine; Visit Provider Internal Medicine Rheumatology | DX: M05.79 Rheumatoid arthritis with rheumatoid factor of multiple sites without organ or systems involvement (principal); Z79.899 Other long term (current) drug therapy; Z71.89 Other specified counseling; N18.30 Chronic kidney disease, stage 3 unspecified | CPT/HCPCS: 36415; 80076; 82565; 85025; 86140; 99214 ==

== ENCOUNTER → 2022-12-17 10:32 | Outpatient (BNVA) | payer MEDICARE, SELFPAY | PROVIDERS: PCP Family Medicine; Visit Provider Internal Medicine Rheumatology | DX: Z79.899 Other long term (current) drug therapy (principal); M05.79 Rheumatoid arthritis with rheumatoid factor of multiple sites without organ or systems involvement; Z71.89 Other specified counseling; N18.30 Chronic kidney disease, stage 3 unspecified; G56.22 Lesion of ulnar nerve, left upper limb | CPT/HCPCS: 36415; 80076; 82565; 85025; 86140; 99214 ==

== ENCOUNTER → 2023-01-09 13:19 | Outpatient (BNVA) | payer MEDICARE, SELFPAY | PROVIDERS: PCP Family Medicine; Referring Provider Internal Medicine Rheumatology; Visit Provider Psychiatry & Neurology Neurology | DX: G56.22 Lesion of ulnar nerve, left upper limb (principal) | CPT/HCPCS: 95908 ==

== ENCOUNTER → 2023-03-18 09:39 | Outpatient (BNVA) | payer MEDICARE, SELFPAY | PROVIDERS: PCP Family Medicine; Visit Provider Internal Medicine Rheumatology | DX: Z79.899 Other long term (current) drug therapy (principal); M05.79 Rheumatoid arthritis with rheumatoid factor of multiple sites without organ or systems involvement; Z71.89 Other specified counseling; N18.30 Chronic kidney disease, stage 3 unspecified; G56.22 Lesion of ulnar nerve, left upper limb | CPT/HCPCS: 36415; 80076; 82565; 85025; 86140; 99214 ==

== ENCOUNTER → 2023-06-25 12:02 | Outpatient (BNVA) | payer BC, MEDICARE, SELFPAY | PROVIDERS: PCP Family Medicine; Visit Provider Internal Medicine Rheumatology | DX: Z79.899 Other long term (current) drug therapy (principal); M05.79 Rheumatoid arthritis with rheumatoid factor of multiple sites without organ or systems involvement | CPT/HCPCS: 36415; 80076; 82565; 85025; 86140 ==

== ENCOUNTER → 2023-10-16 10:45 | Outpatient (BNVA) | payer MEDICARE, SELFPAY | PROVIDERS: PCP Family Medicine; Visit Provider Orthopaedic Surgery | DX: Z98.890 Other specified postprocedural states (principal); M48.062 Spinal stenosis, lumbar region with neurogenic claudication | CPT/HCPCS: 72100; 99214 ==

== ENCOUNTER → 2023-12-25 10:23 | Outpatient (BNVA) | payer MEDICARE, SELFPAY | PROVIDERS: PCP Family Medicine; Visit Provider Internal Medicine Rheumatology | DX: M05.79 Rheumatoid arthritis with rheumatoid factor of multiple sites without organ or systems involvement (principal); Z79.899 Other long term (current) drug therapy; Z71.89 Other specified counseling; N18.31 Chronic kidney disease, stage 3a; G56.22 Lesion of ulnar nerve, left upper limb | CPT/HCPCS: 99214 ==

== ENCOUNTER 2024-05-27 07:57 | Outpatient (CLI) | payer MEDICARE, SELFPAY ==
--- NOTE | 2024-05-27 08:30 | CT_ITS ---
WS: [id number] CT chest wo con [id number] HISTORY: lung nodule TECHNIQUE: Axial imaging performed through the thorax. Coronal and sagittal reformats are submitted. All CT scans at [facility] use at least one of these dose optimization techniques: automated exposure control; mA and/or kV adjustment per patient size (includes targeted exams where dose is matched to clinical indication); or iterative reconstruction. CONTRAST: Omnipaque 350; 100 mL IV. DLP: 353.75 mGy.cm COMPARISON: 06/12/2022, 11/16/2020 Lungs and central airway: Hyperinflated lungs. Stable 1.0 x 1.2 cm nodule in the RIGHT upper lobe. New subsolid nodule in the periphery of the RIGHT upper lobe has increased in size since the prior study of 06/12/2022. On the prior study there was a small nodule at this location. Now the subsolid opacification measures 1.7 x 1.6 cm. Stable azygos esophageal recess nodule. Stable RIGHT middle lobe 5 mm nodule. Increasing subsolid opacifications at the lingula. Small nodules were noted in this location on the prior study. Cavitary nodule now measures 1.1 x 1.0 cm. Additional nodule measures 1.9 x 0.5 cm. Pleura: Normal. No pleural effusion. Heart and pericardium: Normal size heart with no pericardial effusion. Mediastinum and denise: No adenopathy. Vessels: Mildly ectatic atherosclerotic aorta. Normal size pulmonary artery. Coronary artery calcifications. Chest wall and lower neck: No soft tissue masses. Upper abdomen: No adrenal mass. Small hiatal hernia. Osseous structures: No destructive process. CT/CT chest wo con [id number] IMPRESSION: 1. New subsolid nodule periphery RIGHT upper lobe has increased in size now me asuring 1.7 x 1.6 cm. 2. Stable central RIGHT upper lobe nodule measuring 1.0 x 1.2 cm. 3. New subsolid, subpleural opacifications at the lingula. There are 2 subsoli d opacifications developing with central cavitation. 4. Recommendation: Consider PET/CT imaging or follow-up chest CT in 3 months.
== END 2024-05-27 07:58 | disposition home or self-care (01) ==
LOC: RAD 07:58
PROVIDERS: PCP Family Medicine; Visit Provider Internal Medicine Critical Care Medicine
DX: R91.8 Other nonspecific abnormal finding of lung field (principal); F17.200 Nicotine dependence, unspecified, uncomplicated; J44.9 Chronic obstructive pulmonary disease, unspecified; I77.811 Abdominal aortic ectasia; I25.10 Atherosclerotic heart disease of native coronary artery without angina pectoris; K44.9 Diaphragmatic hernia without obstruction or gangrene
CPT/HCPCS: 71250

== ENCOUNTER → 2024-07-01 14:30 | Outpatient (BNVA) | payer MEDICARE, SELFPAY | PROVIDERS: PCP Family Medicine; Visit Provider Orthopaedic Surgery | DX: M54.9 Dorsalgia, unspecified (principal); M54.42 Lumbago with sciatica, left side; G89.29 Other chronic pain | CPT/HCPCS: 72110; 99213 ==

== ENCOUNTER 2024-07-20 10:48 | Outpatient (CLI) | payer MEDICARE, SELFPAY ==
--- NOTE | 2024-07-20 11:00 | MR_ITS ---
WS: [id number] MRI LUMBAR SPINE NONCONTRAST TECHNIQUE: Sagittal T1, T2 and STIR imaging. Axial T1 and T2 imaging. CLINICAL INFORMATION: back pain COMPARISON: None. FINDINGS: Mild lumbar curve. No acute compression. Disc bulging worse at L3-4 disc desiccation. L1-L2: Mild annular bulging. Narrowing of the RIGHT subarticular recess. Mild facet arthropathy. Mild central canal stenosis. L2-L3: Mild annular bulging. Narrowing of the subarticular recess bilaterally. Moderate facet arthropathy. Foramen are patent. L3-L4: Disc osteophyte complex with a RIGHT paracentral protrusion. Moderate central canal stenosis. This is slightly progressed compared to previous. Impingement on traversing RIGHT L4 nerve root. Moderate facet arthropathy. Moderate RIGHT foraminal narrowing. L4-L5: Prior laminectomy defects. Spinal canal and foramen are patent. L5-S1: Prior laminectomy defects. Spinal canal and foramina are patent. Visualized pelvic bony structures: Normal. Paravertebral soft tissues: Normal. Small disc osteophyte protrusions in the cervical spine on the [employer] imaging with mild central canal stenosis. Small LEFT renal cysts. MR/MR lumbar spine wo con* [id number] IMPRESSION: 1. Disc osteophyte complex L3-4 with a RIGHT paracentral protrusion. Moderat e central canal stenosis. This is slightly progressed compared to previous. Imp ingement on traversing RIGHT L4 nerve root. 2. Moderate RIGHT L3-4 foraminal narrowing. 3. Stable mild central canal stenosis L1-2 with narrowing of the subarticular recess. Narrowing of the subarticular recess bilaterally L2-3 similar to previo us
== END 2024-07-20 10:49 | disposition home or self-care (01) ==
PROVIDERS: PCP Family Medicine; Visit Provider Orthopaedic Surgery
DX: M48.061 Spinal stenosis, lumbar region without neurogenic claudication (principal); M25.78 Osteophyte, vertebrae; M51.26 Other intervertebral disc displacement, lumbar region; R93.7 Abnormal findings on diagnostic imaging of other parts of musculoskeletal system; M43.8X6 Other specified deforming dorsopathies, lumbar region; M51.369 Other intervertebral disc degeneration, lumbar region without mention of lumbar back pain or lower extremity pain; M47.896 Other spondylosis, lumbar region; M96.89 Other intraoperative and postprocedural complications and disorders of the musculoskeletal system; M48.02 Spinal stenosis, cervical region; N28.1 Cyst of kidney, acquired
CPT/HCPCS: 72148

== ENCOUNTER → 2024-07-22 10:53 | Outpatient (BNVA) | payer MEDICARE, SELFPAY | PROVIDERS: PCP Family Medicine; Visit Provider Internal Medicine Rheumatology | DX: M05.79 Rheumatoid arthritis with rheumatoid factor of multiple sites without organ or systems involvement (principal); Z79.899 Other long term (current) drug therapy; Z71.89 Other specified counseling; N18.31 Chronic kidney disease, stage 3a; G56.22 Lesion of ulnar nerve, left upper limb | CPT/HCPCS: 99214 ==

== ENCOUNTER → 2024-08-05 08:09 | Outpatient (BNVA) | payer MEDICARE, SELFPAY | PROVIDERS: PCP Family Medicine; Visit Provider Orthopaedic Surgery | DX: Z01.818 Encounter for other preprocedural examination (principal); Z09 Encounter for follow-up examination after completed treatment for conditions other than malignant neoplasm; M48.062 Spinal stenosis, lumbar region with neurogenic claudication; M96.1 Postlaminectomy syndrome, not elsewhere classified | CPT/HCPCS: 36415; 80053; 81001; 85025; 99214 ==

== ENCOUNTER → 2024-08-27 08:45 | Outpatient (BNVA) | payer MEDICARE, SELFPAY | PROVIDERS: PCP Family Medicine; Visit Provider Family Medicine | DX: Z01.818 Encounter for other preprocedural examination (principal) | CPT/HCPCS: 93005 ==

== ENCOUNTER 2024-09-03 06:24 | Day surgery (SDC) | payer MEDICARE, SELFPAY ==
[2024-09-03] VITALS (10 sets, daily range): BP systolic 120–156; BP diastolic 78–111; PULSE 81–91; RESP 13–19; TEMP 36.3–36.6; O2SAT 91–97; BMI 26.9
[2024-09-03] MEDS: sodium chloride 0.9% 1,000 ML 30 ML IV (07:23)
--- NOTE | 2024-09-03 08:08 | ANES.PREANE2 ---
Pre-Anesthetic Assessment Height/Weight: Height 5 ft 9 in Weight 182 lb Temp Pulse Resp BP Pulse Ox O2 Del Method 97.3 F L 85 18 131/93 97 Room Air 09/03/24 07:06 09/03/24 07:06 09/03/24 07:06 09/03/24 07:06 09/03/24 07:06 09/03/24 07:06 Preop Diagnosis: Lumbar stenosis with neurogenic claudication Operation Date: 09/03/24 09:00 Proposed Procedures p Lumbar Spine Decompression Lumbar Decompression L 3-4(Not Applicable) - Sarabjit Cox, DO Was Beta Pat taken within 24 hours: N/A Was Clonidine taken within 24 hours: N/A Last intake: Intake Last Liquid Date 09/02/24 Last Liquid Time 21:00 Last Solid Date 09/02/24 Last Solid Time 20:30 Social Tobacco and No alcohol Exam alert, oriented x 3 and regular rate & rhythm Mild expiratory wheeze Airway Submandibular: within normal limits Cervical ROM: within normal limits Mallampati: Class III Comments: Comments: Very poor dentition, few teeth left. Denies any loose Anesthetic Plan ASA status: 3 Anesthesia: General Other: No prior issues with anesthesia NPO since yesterday evening Patient has a history of stage III CKD Asthma/COPD. Patient is still smoking. Uses occasional inhalers. Rheumatoid arthritis Hypertension on hydrochlorothiazide and lisinopril. 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, has issues with mobility but does not use a walker EKG showing sinus rhythm Plan for GETA Medications/Allergies Home Medications ?Medication ?Instructions ?Recorded ?Confirmed ?Last Taken ?Type aspirin 81 mg tablet,delayed 81 mg PO QDAY 05/19/19 09/02/24 08/27/24 History release (Adult Aspirin Regimen) azelastine 137 mcg (0.1 %) nasal 1 spray intranasal BID 09/30/19 09/02/24 09/02/24 History spray hydrocodone 7.5 mg-acetaminophen 1 tab PO Q6H PRN Pain 08/31/20 09/02/24 Unknown History 325 mg tablet albuterol sulfate 90 mcg/actuation 1 puff inhalation QID 11/14/20 09/02/24 05/31/22 History aerosol inhaler (ProAir HFA) tramadol 50 mg tablet 50 mg PO Q6H PRN Pain 12/17/21 09/02/24 09/02/24 History ibuprofen 600 mg tablet 600 mg PO Q6H PRN Pain 12/17/22 09/02/24 Unknown History escitalopram oxalate 10 mg tablet 10 mg PO DAILY 12/04/23 09/02/24 09/03/24 History ferrous sulfate 325 mg (65 mg 325 mg PO DAILY 12/04/23 09/02/24 09/02/24 History iron) tablet (FeroSul) fexofenadine 180 mg tablet 180 mg PO DAILY 12/04/23 09/02/24 09/03/24 History (Allergy Relief (fexofenadine)) fluticasone fur. 100 mcg-umeclid 1 inh inhalation DAILY #60 ea 12/04/23 09/02/24 09/03/24 Rx 62.5 mcg-vilant 25 mcg inhalat.powder (Trelegy Ellipta) hydrochlorothiazide 12.5 mg capsule 12.5 mg PO DAILY 12/04/23 09/02/24 09/02/24 History lisinopril 20 mg tablet 20 mg PO DAILY 12/04/23 09/02/24 09/02/24 History montelukast 10 mg tablet 10 mg PO DAILY 12/04/23 09/02/24 09/03/24 History leflunomide 20 mg tablet 20 mg PO DAILY #90 tabs 07/22/24 09/02/24 09/03/24 Rx pantoprazole 40 mg tablet,delayed 40 mg PO DAILY #90 tabs 07/22/24 09/03/24 Unknown Rx release prednisone 5 mg tablet 5 mg PO DAILY #90 tabs 07/22/24 09/02/24 09/03/24 Rx tofacitinib 5 mg tablet (Xeljanz) 5 mg PO DAILY #90 tabs 07/22/24 09/02/24 08/29/24 Rx Allergies Allergy/AdvReac Type Severity Reaction Status Date / Time adalimumab (From Humira) Allergy Intermediate rash Verified 08/27/24 09:12 caffeine Allergy Unknown rash Verified 08/27/24 09:12 sulfasalazine Allergy Unknown rash Verified 08/27/24 09:12 Current Medications Generic Name Dose Route Start Last Admin Trade Name Freq PRN Reason Stop Dose Admin Sodium Chloride 1,000 mls @ 30 mls/hr 09/03/24 07:00 09/03/24 07:23 Sodium Chloride 0.9% IV 09/04/24 06:59 30 mls/hr .Q24H TOÑA Administration PFSH Anesthesia Medical History 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 CKD (chronic kidney disease) stage 3, GFR 30-59 ml/min Chronic diarrhea Low back pain Lung nodule Other residential (current) drug therapy Immunization counseling High risk medication use Surgical History H/O hernia repair History of back surgery 1988 Family History Other CAD (coronary artery disease) Cancer Hypertension Rheumatoid arthritis Stroke Denies family history of Diabetes Lupus Chronic kidney disease (CKD) Social History Smoking and tobacco/nicotine status: current every day tobacco/nicotine user cigarettes Packs smoked per day: 0.5 Years cigarettes smoked: 60 [ Other cigarette details: 2PPD x 40 Years] Quit status (tobacco/nicotine): considering quitting Alcohol intake: never Substance/Drug Use: never Lives independently: Yes Household members: spouse Marital status: Current occupational status: retired and disabled Do you think of yourself as: Straight/Heterosexual Current gender identity: Male
--- NOTE | 2024-09-03 08:19 | W.PM.OPSUD ---
Surgery/Procedure H&P Update DATE OF PROCEDURE: September 03, 2024 DATE H&P PERFORMED: 08/05/24 H&P UPDATE INFORMATION: I have reviewed H&P completed within last 30 days, I have examined patient prior to procedure and No changes to prior documentation PREOP DIAGNOSIS: Lumbar stenosis with neurogenic claudication PLANNED PROCEDURE: Operation Date: 09/03/24 09:00 Proposed Procedures p Lumbar Spine Decompression Lumbar Decompression L 3-4(Not Applicable) - Sarabjit Cox DO
[2024-09-03] MEDS: ceFAZolin 2,000 mg SDV 2000 MG IVP (08:48)
[2024-09-03] MEDS: lidocaine-epi 1% 20 mL INJ 10 ML INJECTION (09:35)
--- NOTE | 2024-09-03 10:04 | XR_ITS ---
WS: [id number] Exam: XR lumbar spine 2-3V* [id number] Date/Time of Exam: 09/03/2024 10:05 AM Reason For Exam: OR PICS Single anterior posterior image of the lower lumbar spine is submitted. The image was obtained for preoperative localization purposes.
--- NOTE | 2024-09-03 10:06 | PM.OP ---
Operative Report Date of procedure: September 03, 2024 Pre-op diagnosis: Lumbar stenosis with neurogenic claudication Post-op diagnosis: same Procedure done: L3/4 laminectomy with partial facetectomy bilateral Surgeon: Sarabjit Cox DO Estimated blood loss (mL): 10 Procedure: L3/4 laminectomy with partial facetectomy bilateral Patient is brought to the operative suite. After undergoing anesthesia they are placed in the prone position. All areas of impingement are well padded. Patient is then prepped and draped in the normal sterile fashion. A skin incision is made over the L3/4 level. This is confirmed under c-arm guidance. A series of dilators are passed and the tubular retractor is docked on the L3 lamina. A bovie is used to clear the soft tissue off the lamina and the L 3/4 facet joint. A high speed desi is then used to perform the laminectomy and take down the medial aspect of the L 3/4 facet joint. A kerrison rongeure was then used to take down the remaining lamina and smooth the edged of the laminectomy up to the point where the ligamentum flavum attaches. Attention was then brought to the medial aspect of the facet joint. The remaining medial aspect of the superior and inferior aspect of the facet joint were taken down with the kerrison from the pedicle of L3 to L 4. The facet joint had significant hypertrophy. Attention was then brought to the Ligamentum Flavum. The ligament was taken down from the lamina of L3 to L4 and out medially to the remaining facet joint. The ligament was thick. The dura was then exposed. The dura was in good repair. The L3 nerve was then traced with a curette out the L3/4 foramen and found to be adequately decompressed. The L4 nerve was traced with a curette around the L4 pedicle. The lateral recess was opened with a kerrison helping to further decompress the L4 nerve. The tubular retractor was then tilted to the contralateral side. The bovie was used to take down the soft tissue on the spinous process. The high speed desi was used to take down the spinous process and then the contralateral lamina of L3. The kerrison rongeur was used to take down the remaining lamina to the point where the ligamentum flavum attached and the ligamentum flavum was taken down from L3 to L4. The kerrison rongeur was then used to reach across and take down the medial aspect of the contralateral L3/4 facet joint.The currete was used to trace the contralateral L3 nerve out the L3/4 foramen to make sure it was decompressed adequatesly and the L4 was traced around the L4 pedicle. The lateral recess was opened further with the kerrison to ensure the L4 is adequately decompressed. Wound is then irrigated copiously with saline and surgiflo is used to stop any bleeding. The tubular retractor is removed and the wound is closed with vicryl and monocryl suture. Glue is then used to protect the wound. A sterile dressing is then placed. Patient was then placed in the supine position and transferred to the PACU in stable condition.
--- NOTE | 2024-09-03 11:16 | ANE.PACU2 ---
Inpatient post-anesthesia follow up: Airway intact: Yes Vital signs: Temperature 97.5 F Pulse Rate 81 Respiratory Rate 16 Blood Pressure 140/87 Pulse Oximetry 95 Oxygen Delivery Me thod Room Air Oxygen Flow Rate Fraction of Inspir ed Oxygen Hydration adequate: Yes Nausea and vomiting: No Pain level: 1 Mental status: Baseline
== END 2024-09-03 11:16 | disposition home or self-care (01) ==
PROVIDERS: PCP Registered Nurse; Visit Provider Orthopaedic Surgery
PROC: (CPT 63005; principal; 2024-09-03 08:40)
DX: M48.062 Spinal stenosis, lumbar region with neurogenic claudication (principal); M06.9 Rheumatoid arthritis, unspecified; J44.9 Chronic obstructive pulmonary disease, unspecified; I12.9 Hypertensive chronic kidney disease with stage 1 through stage 4 chronic kidney disease, or unspecified chronic kidney disease; F17.210 Nicotine dependence, cigarettes, uncomplicated; N18.30 Chronic kidney disease, stage 3 unspecified; Z79.899 Other long term (current) drug therapy; Z79.82 Long term (current) use of aspirin; Z88.8 Allergy status to other drugs, medicaments and biological substances; Z88.2 Allergy status to sulfonamides
CPT/HCPCS: 63047; 72100; 76000; J0690; J1100; J2405; J2704; J3010; J3490; J7030; J9999

== ENCOUNTER → 2024-09-23 10:28 | Outpatient (BNVA) | payer MEDICARE, SELFPAY | PROVIDERS: PCP Registered Nurse; Visit Provider Orthopaedic Surgery | DX: Z98.890 Other specified postprocedural states (principal) | CPT/HCPCS: 99024 ==

== ENCOUNTER 2024-10-21 09:09 | Outpatient (CLI) | payer MEDICARE, SELFPAY ==
[2024-10-21 09:40] LABS: Hematocrit 37.6 % (37-53); Hemoglobin 12.40 g/dL (11.27-16.99); Mean Corpuscular HGB Conc 33.0 g/dL (30-55); Mean Corpuscular Hemoglobin 30.2 pg (27-33); Mean Corpuscular Volume 91.5 fl (82-101); Nucleated Red Blood Cells % 0 %; Platelet Count 218 10^3/cmm (157-399); Red Blood Count 4.11 10^6/uL (3.85-5.65); White Blood Count 7.21 10^3/uL (3.29-11.43)
[2024-10-21 10:36] LABS: Alanine Aminotransferase 10 U/L (0-41); Albumin Level 3.7 g/dL (3.5-5.2); Alkaline Phosphatase 87 U/L (40-130); Aspartate Amino Transferase 16 U/L (0-40); Globulin 2.9 g/dL (1.3-4.6); Total Protein 6.6 g/dL (6.6-8.7)
== END 2024-10-21 09:10 | disposition home or self-care (01) ==
PROVIDERS: PCP Registered Nurse; Visit Provider Internal Medicine Rheumatology
DX: Z79.899 Other long term (current) drug therapy (principal); Z98.890 Other specified postprocedural states; M54.2 Cervicalgia
CPT/HCPCS: 36415; 72050; 80076; 82565; 85025; 85651; 86140; 99024

== ENCOUNTER 2024-10-28 09:39 | Outpatient (CLI) | payer MEDICARE, SELFPAY ==
--- NOTE | 2024-10-28 10:15 | MR_ITS ---
WS: [id number] MRI CERVICAL SPINE NONCONTRAST TECHNIQUE: Sagittal T1, T2 and STIR imaging. Axial T2, gradient, and fiesta imaging. CLINICAL INFORMATION: cervical pain COMPARISON: None. FINDINGS: Straightening of the normal cervical lordosis. Disc space narrowing worse C5-C6 and C6-C7. Cord signal is normal. C2-C3: Mild facet arthropathy. Mild bilateral bony foraminal narrowing. C3-C4: Central disc osteophyte protrusion with indentation on the cervical cord. Mild central canal stenosis. Moderate to severe LEFT and moderate RIGHT bony foraminal narrowing. Moderate facet arthropathy. C4-C5: Shallow central protrusion. Slight indentation on the cervical cord. Mild central canal stenosis. Moderate facet arthropathy. Severe bilateral bony foraminal narrowing. C5-C6: Disc osteophyte complex with shallow central protrusion. Uncovertebral joint hypertrophy. Severe bilateral bony foraminal narrowing. Moderate facet arthropathy. Mild central canal stenosis. C6-C7: Disc osteophyte complex with mild central canal stenosis. Severe LEFT and moderate RIGHT bony foraminal narrowing. Mild central canal stenosis. C7-T1: Tiny shallow RIGHT paracentral protrusion. Mild LEFT greater than RIGHT bony foraminal narrowing. Visualized brain stem structures: Normal. Prevertebral soft tissues: Normal. MR/MR cervical spin wo con* [id number] IMPRESSION: 1. Straightening of the normal cervical lordosis. Moderate spondylitic changes . 2. Disc osteophyte protrusions with mild central canal stenosis C3-C4 C4-C5 C5 -C6 and C6-C7 with slight indentation on the cervical cord. 3. Multilevel moderate to severe bony foraminal narrowing worse at LEFT C3-4, bilateral C4-5 worse on the LEFT, bilateral C5-6 worse on the LEFT, and LEFT C6 -7. 4. Multilevel moderate facet arthropathy worse at LEFT C3-4, bilateral C4-5, b ilateral C5-C6, and bilateral C6-7.
== END 2024-10-28 09:40 | disposition home or self-care (01) ==
LOC: RAD 09:42
PROVIDERS: PCP Registered Nurse; Visit Provider Orthopaedic Surgery
DX: M50.21 Other cervical disc displacement, high cervical region (principal); M50.221 Other cervical disc displacement at C4-C5 level; M50.222 Other cervical disc displacement at C5-C6 level; M50.23 Other cervical disc displacement, cervicothoracic region; M48.02 Spinal stenosis, cervical region; M47.812 Spondylosis without myelopathy or radiculopathy, cervical region
CPT/HCPCS: 72141

== ENCOUNTER → 2024-11-04 12:59 | Outpatient (BNVA) | payer MEDICARE, SELFPAY | PROVIDERS: PCP Registered Nurse; Visit Provider Orthopaedic Surgery | DX: M50.90 Cervical disc disorder, unspecified, unspecified cervical region (principal); M54.12 Radiculopathy, cervical region | CPT/HCPCS: 99214 ==

== ENCOUNTER → 2024-12-07 10:28 | Outpatient (BNVA) | payer MEDICARE, SELFPAY | PROVIDERS: PCP Registered Nurse; Visit Provider Orthopaedic Surgery | DX: Z98.890 Other specified postprocedural states (principal) | CPT/HCPCS: 99024 ==

== ENCOUNTER → 2024-12-21 10:09 | Outpatient (BNVA) | payer MEDICARE, SELFPAY | PROVIDERS: PCP Registered Nurse; Referring Provider Orthopaedic Surgery; Visit Provider Anesthesiology Pain Medicine | DX: M54.2 Cervicalgia (principal); M47.812 Spondylosis without myelopathy or radiculopathy, cervical region; M48.02 Spinal stenosis, cervical region | CPT/HCPCS: 99204 ==

== ENCOUNTER → 2025-01-25 14:03 | Outpatient (BNVA) | payer MEDICARE, SELFPAY | PROVIDERS: PCP Registered Nurse; Visit Provider Orthopaedic Surgery | DX: M54.2 Cervicalgia (principal); M25.519 Pain in unspecified shoulder | CPT/HCPCS: 99213 ==

== ENCOUNTER → 2025-02-09 08:21 | Outpatient (BNVA) | payer MEDICARE, SELFPAY | PROVIDERS: PCP Registered Nurse; Visit Provider Anesthesiology Pain Medicine | DX: M79.18 Myalgia, other site (principal); M47.812 Spondylosis without myelopathy or radiculopathy, cervical region; M48.02 Spinal stenosis, cervical region | CPT/HCPCS: 20553; 99214; J1010; J3490 ==

== ENCOUNTER 2025-03-01 12:54 | Outpatient (CLI) | payer MEDICARE, SELFPAY ==
[2025-03-01 13:48] LABS: Hematocrit 35.4 % (37-53); Hemoglobin 11.90 g/dL (11.27-16.99); Mean Corpuscular HGB Conc 33.6 g/dL (30-55); Mean Corpuscular Hemoglobin 31.4 pg (27-33); Mean Corpuscular Volume 93.4 fl (82-101); Nucleated Red Blood Cells % 0 %; Platelet Count 224 10^3/cmm (157-399); Red Blood Count 3.79 10^6/uL (3.85-5.65); White Blood Count 6.04 10^3/uL (3.29-11.43)
[2025-03-01 14:11] LABS: Alanine Aminotransferase 9 U/L (0-41); Albumin Level 3.8 g/dL (3.5-5.2); Alkaline Phosphatase 71 U/L (40-130); Aspartate Amino Transferase 17 U/L (0-40); Globulin 2.5 g/dL (1.3-4.6); Total Protein 6.3 g/dL (6.6-8.7)
== END 2025-03-01 12:55 | disposition home or self-care (01) ==
LOC: LAB 12:56
PROVIDERS: PCP Registered Nurse; Visit Provider Internal Medicine Rheumatology
DX: M05.79 Rheumatoid arthritis with rheumatoid factor of multiple sites without organ or systems involvement (principal); Z79.899 Other long term (current) drug therapy; M54.12 Radiculopathy, cervical region; M47.812 Spondylosis without myelopathy or radiculopathy, cervical region; M50.30 Other cervical disc degeneration, unspecified cervical region; R93.7 Abnormal findings on diagnostic imaging of other parts of musculoskeletal system; M85.80 Other specified disorders of bone density and structure, unspecified site; Z98.890 Other specified postprocedural states; Z71.85 Encounter for immunization safety counseling; N18.31 Chronic kidney disease, stage 3a; R91.1 Solitary pulmonary nodule; R19.7 Diarrhea, unspecified
CPT/HCPCS: 36415; 72050; 80076; 82565; 85025; 85651; 86140; 86480; 99213; 99214